=== PATIENT | female | born 1975 | race Caucasian/White ===

== ENCOUNTER 2017-12-12 10:23 | Emergency (ER) | payer OTHER ==
[2017-12-12] MEDS ORDERED: TDAP ADULT 0.5 ML INJ (BOOSTRIX) IM ONE ×2 (10:36→10:53)
--- NOTE | 2017-12-12 11:05 | EDPHY ---
H & P Time Seen by Provider: 12/12/17 10:26 HPI/ROS: CHIEF COMPLAINT: Scalp laceration, left forearm pain HISTORY OF PRESENT ILLNESS: 42-year-old female presents to the emergency department with scalp laceration. The patient was at work just prior to arrival when a piece of equipment and folded and hit her in her scalp. She did not lose consciousness. She complains of local headache where she hit. Denies neck or back pain. Denies chest pain or difficulty breathing. Denies abdominal pain. No visual changes. Pain also in her left forearm. Denies injury to the lower extremities or right upper extremity. She is unsure of her last tetanus shot. REVIEW OF SYSTEMS: Constitutional: No fever, no chills. Eyes: No double or blurry vision. ENT: No sore throat. Respiratory: No cough, no shortness of breath. Cardiac: No chest pain. Gastrointestinal: No abdominal pain, vomiting or diarrhea. Genitourinary: No dysuria. Musculoskeletal: No neck or back pain. Skin: Scalp laceration. No rashes. Neurological: No headache. Past Medical/Surgical History: Anxiety Social History: Single and lives in [place] Smoking Status: Never smoked Physical Exam: General Appearance: Alert, no distress. Mentating normally and answering questions appropriately. Eyes: Pupils equal and round. Extraocular motions are all intact. ENT: Mouth: Mucous membranes moist. Respiratory: No wheezing, rhonchi, or rales, lungs are clear to auscultation. Cardiovascular: Regular rate and rhythm. Gastrointestinal: Abdomen is soft and nontender, no masses, no rebound or guarding, bowel sounds normal. Neurological: Alert and oriented x 3, cranial nerves II through XII grossly intact Skin: 3 cm frontal scalp laceration noted. No active bleeding noted. No evidence of depressed skull fracture. Warm and dry, no rashes. Musculoskeletal: Nontender to palpate along the cervical, thoracic or lumbar spine. Neck is supple. Extremities: Full range of motion and no peripheral edema. Superficial abrasion the dorsal aspect of the left forearm. Pain with range of motion of her left forearm but she is able to fully pronate and supinate. Psychiatric: Patient is oriented X 3, there is no agitation. Constitutional: Initial Vital Signs Temperature (C) 37.0 C 12/12/17 10:28 Heart Rate 82 12/12/17 10:28 Respiratory Rate 16 12/12/17 10:28 Blood Pressure 138/82 H 12/12/17 10:28 O2 Sat (%) 96 12/12/17 10:28 O2 Delivery Mode Room Air Allergies/Adverse Reactions: No Known Allergies Allergy (Unverified 12/12/17 10:28) Home Medications: Medication Instructions Recorded NK [No Known Home Meds] 12/12/17 Medical Decision Making - Diagnostics Imaging Results: Imaging Impressions Forearm X-Ray 12/12/17 11:03 Impression: Nothing acute identified. Imaging: I viewed and interpreted images myself Procedures: Laceration repair. Verbal consent was obtained from the patient. The 3 cm scalp laceration on the frontal scalp was anesthetized using 1% lidocaine with epinephrine. The wound was irrigated with saline, draped and explored to its base with a gloved finger. There were no deep structures involved. The wound was repaired with 6 sd. The wound repair was simple. The procedure was performed by myself. ED Course/Re-evaluation: 42-year-old female presents to the emergency department with head injury and injury to her left forearm. The wound was repaired, see procedure note. X- rays of the left forearm reveal no fractures. She was given wound care precautions. Differential Diagnosis: Head injury including but not limited to concussion, skull fracture, intraparenchymal contusion, subarachnoid, subdural and epidural hematoma. - Data Points Medications Given: Discontinued Medications Diphtheria/Tetanus/Acell Pertussis (Boostrix) 0.5 ml IM .ONCE ONE Stop: 12/12/17 10:54 Last Admin: 12/12/17 10:55 Dose: 0.5 ml Departure - Departure Disposition: Home, Routine, Self-Care Clinical Impression: Scalp laceration Qualifiers: Encounter type: initial encounter Qualified Code(s): S01.01XA - Laceration without foreign body of scalp, initial encounter Contusion of forearm, left Qualifiers: Encounter type: initial encounter Qualified Code(s): S50.12XA - Contusion of left forearm, initial encounter Condition: Good Instructions: Care For Your Stitches (ED), Laceration (ED), Contusion in Adults (ED), Acute Wounds (ED) Additional Instructions: Wound Care Follow-Up: Removal of sutures in 7 days. Suture removal is complimentary in uncomplicated cases. Infection or abnormal findings would require reevaluation by the MD. In that case, you may be billed. Activity as tolerated. Avoid any activity that might put you at risk for another head injury for at least 1 week. Ibuprofen 600 mg every 8 hr as needed for pain. Return to the emergency department sooner if he developed headache, vomiting, altered mental status, or any other concerns. 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
[2017-12-12 11:53] VITALS: BP 107/67
== END 2017-12-12 11:52 | disposition home or self-care (01) ==
PROC: 0HQ0XZZ Repair Scalp Skin, External Approach (ICD-10-PCS; principal; 2017-12-12)
DX: S01.01XA Laceration without foreign body of scalp, initial encounter (principal); S50.12XA Contusion of left forearm, initial encounter; W20.8XXA Other cause of strike by thrown, projected or falling object, initial encounter; Y92.9 Unspecified place or not applicable; Y99.0 Civilian activity done for income or pay; Z23 Encounter for immunization